=== PATIENT | male | born 1985 | race Caucasian/White ===

== ENCOUNTER 2022-10-21 15:25 | Emergency (ER) | payer OTHER, SELFPAY ==
[2022-10-21 15:41] VITALS: BP 135/81; PULSE 95; RESP 16; TEMP 36.9; O2SAT 99
--- NOTE | 2022-10-21 15:44 | ED.EAR ---
HPI - Ear Problem General Chief complaint: Ear Stated complaint: ear clogged Time Seen by Provider: 10/21/22 15:51 Source: patient, RN notes reviewed and old records reviewed Mode of arrival: ambulatory Limitations: no limitations History of Present Illness HPI Narrative: 36-year-old male presents to the [facility] with complaints decreased hearing/ear clogged to the right ear that has been worsening over the last several days. Denies any fevers. Related Data Allergies Allergy/AdvReac Type Severity Reaction Status Date / Time Penicillins Allergy Mild Itching Verified 10/21/22 16:08 Review of Systems Review of Systems: All systems reviewed & are unremarkable except as noted in HPI and below Constitutional: Constitutional: Reports no additional constitutional complaints Eyes: Eyes: Reports no additional eye complaints ENT: Reports as per HPI Cardiovascular: Cardiovascular: Reports no additional cardiovascular complaints, Denies chest pain and Denies dyspnea Respiratory: Respiratory: Reports no additional respiratory complaints, Denies chest congestion, Denies cough and Denies dyspnea Gastrointestinal: Gastrointestinal: Reports no additional gastrointestinal complaints, Denies abdominal pain, Denies nausea and Denies vomiting Musculoskeletal: Musculoskeletal: Reports no additional musculoskeletal complaints Integumentary/Breasts: Skin/Breast: Reports system reviewed and no additional complaints, except as docu Neurologic: Reports system reviewed and no additional complaints, except as documented Psychiatric: Psychiatric: Reports no additional psychiatric complaints Allergic/Immunologic: Allergic/Immunologic: Reports no additional allergic/immunologic complaints PMFSH Comments At the time of my signature, I reviewed and agree with the nursing past medical, surgical, social, and family history. There is no relevant family history pertinent to the patient complaint. Exam Const: General: cooperative, healthy appearing, comfortable, no acute distress, well developed, alert and well nourished Nutritional Appearance: well nourished Orientation/consciousness: patient oriented x3 Limitations: no limitations HENMT: Head: normal to inspection Ears: hearing grossly normal bilaterally, external ears normal and Abnormal EAC present cerumen impaction bilateral Face/Nose/Sinus: Normal external nose present, Normal nares present, Normal nasal mucous membranes and turbinates present and normal facial exam Face and sinus: normal facial exam Mouth: Yes Normal oral and palatal mucosa present, Yes lip normal and Yes moist mucous membranes Throat: posterior oropharynx normal and uvula midline Eyes: General: appearance normal, both eyes and all related structures Alignment and Position: alignment normal Periorbital: periorbital findings normal Conjunctivae: conjunctivae normal Pupils: Equal, round and reactive pupils present EOM: EOMs intact bilaterally Neck: Neck: normal visual inspection, full ROM, no lymphadenopathy and no meningeal signs Chest: Chest palpation & inspection: normal inspection of the chest Resp: Effort & Inspection: normal respiratory effort and able to speak in complete sentences Auscultation: clear to auscultation bilaterally, no crackles, no rales, no rhonchi and no wheezes Cardio: Rate: regular rate Rhythm: regular rhythm Back/Spine/Pelvis: Cervical Spine: cervical ROM normal Thoracic/Lumbar Spine: No thoracic spinal tenderness Skin: General skin exam: normal color and no rashes or lesions noted Lesions: no lesions Rashes: no rashes Wounds: no wounds Neuro: General: patient oriented x3, gait normal, tone normal, moves all extremities and no meningeal signs Cranial nerves: Yes Equal, round and reactive pupils present Cognition (Neuro): normal cognition Speech: normal speech Gait exam (Neuro): Normal gait present Extrem: General: normal to inspection, full ROM, capillary refill normal and normal gait
== END 2022-10-21 16:19 | disposition home or self-care (01) ==
PROVIDERS: Emergency Provider Nurse Practitioner
DX: H61.23 Impacted cerumen, bilateral (principal)
CPT/HCPCS: 69210; 99212; G0463

== ENCOUNTER 2024-05-08 11:20 | Emergency (ER) | payer OTHER, SELFPAY ==
[2024-05-08 11:38] VITALS: BP 131/78; PULSE 94; RESP 16; TEMP 36.4; O2SAT 99
--- NOTE | 2024-05-08 11:50 | ED.URI ---
HPI - URI/Sore Throat General Chief Complaint: Upper Respiratory Infection Stated Complaint: cough,phlegm,low energy, DAW[place] Time Seen by Provider: 05/08/24 11:43 Source: patient and RN notes reviewed Mode of arrival: ambulatory Limitations: no limitations History of Present Illness HPI Narrative: Patient presents today with a 1 month history of cough, fatigue, nasal congestion, ear pain, headache. Cough is worse at night. States symptoms had improved a few days ago, but worsened again 2 days ago. He has tried decongesting, Mucinex with only mild relief. No history of asthma or COPD. Smokes half pack per day. Related Data Allergies Allergy/AdvReac Type Severity Reaction Status Date / Time Penicillins Allergy Mild Itching Verified 05/08/24 11:22 Review of Systems Review of Systems: CONSTITUTIONAL: Denies body aches, fever, chills, or sweats.+ fatigue EYES: Denies visual changes, redness, or discharge. ENT: Denies rhinorrhea, sore throat.+ congestion, ear pain CARDIOVASCULAR: Denies chest pain, palpitations, or edema. RESPIRATORY: Denies dyspnea.+ cough GASTROINTESTINAL: Denies abdominal pain, nausea, vomiting, or diarrhea. GENITOURINARY: Denies dysuria or hematuria. SKIN: Denies rash, itching, or wounds. MUSCULOSKELETAL: Denies back pain, joint pain, or myalgia. NEUROLOGIC: Denies numbness, tingling, or weakness.+ headache PSYCH: Denies depression or anxiety. [facility] Social History Social History (Updated 05/08/24 @ 13:18 by Tona Levy, [facility], ) Smoking packs per day: 0.5 Smoking cigarettes per day: 10.0 Smoking status: Current every day smoker Tobacco type: cigarettes Comments At time of signature, I have reviewed and agree with nursing past medical, surgical, social and family history unless otherwise noted. Please see nursing chart for further information. There is no relevant family history pertinent to the presenting complaint Exam Narrative: GENERAL: Well-appearing, well-nourished, and in no acute distress. HEAD: Normocephalic, atraumatic. EYES: EOMI. No redness or drainage. Conjunctivae normal. ENT: Mucous membranes pink and moist. Nares congested. No rhinorrhea. TMs normal bilaterally. Throat normal. Uvula midline. NECK: Normal AROM. Supple. No lymphadenopathy. CHEST: No respiratory distress. Clear to auscultation. HEART: Regular rate and rhythm. No murmur appreciated. EXTREMITIES: Normal range of motion. No edema. SKIN: Warm, dry, no rash. Capillary refill normal. Normal skin turgor. NEURO: No focal deficits. Alert and oriented x3. Gait steady. PSYCH: Normal affect. No signs of depression or anxiety. Course Course Level of Care: Express Care Visit Vital Signs Vital signs: Vital Signs Temperature 97.5 F L 05/08/24 11:38 Pulse Rate 94 05/08/24 11:38 Respiratory Rate 16 05/08/24 11:38 Blood Pressure 131/78 05/08/24 11:38 Pulse Oximetry 99 05/08/24 11:38 Oxygen Delivery Room Air 05/08/24 11:38 Temperature 97.5 F L 05/08/24 11:38 Pulse Rate 94 05/08/24 11:38 Respiratory Rate 16 05/08/24 11:38 Blood Pressure 131/78 05/08/24 11:38 Pulse Oximetry 99 05/08/24 11:38 Oxygen Delivery Room Air 05/08/24 11:38 Reviewed MDM - URI/Sore Throat MDM Narrative Medical decision making narrative: Patient will be treated with doxycycline, prednisone, and benzonatate for sinusitis and bronchitis. Anticipatory guidance given. Differential Diagnosis Differential diagnosis: Likely upper respiratory infection, otitis media, sinusitis, viral infection, bronchitis and other (Pneumonia) Critical Care Time Critical Care Time Critical Care Time: No Discharge Plan Discharge Clinical Impression: Bronchitis Sinusitis Qualifiers: Sinusitis location: unspecified location Chronicity: acute Recurrence: non-recurrent Qualified Code(s): J01.90 - Acute sinusitis, unspecified Patient Disposition: Home, Self-Care Condition: Stable Instructions: Antibiotic Form, Sinusitis (ED), Acute Bronchitis (ED) Additional Instructions: Please take all medications as prescribed. Be sure to start the prednisone in the morning as taking it in the afternoon may keep you awake at night. Follow-up with your PCP next week if symptoms are not improving. Go to the ER immediately if you develop shortness of breath, chest pain, or new fever. Your blood pressure was elevated above 120/80 today at Urgent Care. This puts you above the threshold for follow up. Please schedule a followup visit with your personal physician as soon as possible, for further evaluation and treatment. Even blood pressure exceeding 120/80 may indicate pre-hypertension. Prescriptions: New benzonatate 200 mg capsule 200 mg PO TID PRN (Reason: cough) Qty: 20 0RF prednisone 50 mg tablet 50 mg PO DAILY 5 Days Qty: 5 0RF doxycycline hyclate 100 mg tablet 100 mg PO BID 7 Days Qty: 14 0RF Follow-up/Referrals: PHYSICIAN,CROWN BUFFER [Primary Care Provider] - Time of Disposition: 11:53
== END 2024-05-08 11:59 | disposition home or self-care (01) ==
PROVIDERS: Emergency Provider Nurse Practitioner
DX: J40 Bronchitis, not specified as acute or chronic (principal); J01.90 Acute sinusitis, unspecified; F17.210 Nicotine dependence, cigarettes, uncomplicated
CPT/HCPCS: 99213; G0463

== ENCOUNTER 2024-11-04 14:11 | Emergency (ER) | payer BC, SELFPAY ==
--- NOTE | ~2024-11-04 | XR_ITS ---
EXAMINATION: XR chest 2V DATE: 11/04/2024 14:42 INDICATION: Coughing and wheezing. TECHNIQUE: PA and lateral views of the chest were obtained. COMPARISON: None FINDINGS: The lungs are clear with no focal airspace opacities, pulmonary edema, pleural effusion or pneumothor ax. The cardiomediastinal silhouette is normal. Mild thoracic spondylosis with chronic appearing mild likely physiologic anterior wedging at a few lower thoracic vertebral bodies. IMPRESSION: 1. No acute cardiopulmonary disease. Reviewed, dictated and finalized at location A.
--- NOTE | 2024-11-04 14:15 | ED.URI ---
HPI - URI/Sore Throat General Chief Complaint: Upper Respiratory Infection Stated Complaint: Cough/Vomiting Time Seen by Provider: 11/04/24 14:24 Source: patient, RN notes reviewed and old records reviewed Mode of arrival: ambulatory Limitations: no limitations History of Present Illness HPI Narrative: 38-year-old male presents to the [facility] with 2 and half weeks of cough, headache, sneezing and increased fatigue. Patient is a smoker. Has been taking allergy medication as well as ibuprofen. Denies fevers, chest pain, abdominal pain. Denies shortness of breath. Related Data Allergies Allergy/AdvReac Type Severity Reaction Status Date / Time Penicillins Allergy Mild Itching Verified 11/04/24 14:12 Review of Systems Review of Systems: All systems reviewed & are unremarkable except as noted in HPI and below Constitutional: Constitutional: Reports as per HPI, Reports fatigue and Reports headache(s) ENT: Reports as per HPI Cardiovascular: Cardiovascular: Reports no additional cardiovascular complaints, Denies chest pain and Denies dyspnea Respiratory: Respiratory: Reports as per HPI, Reports no additional respiratory complaints, Denies chest congestion, Reports cough and Denies dyspnea Musculoskeletal: Musculoskeletal: Reports no additional musculoskeletal complaints Integumentary/Breasts: Skin/Breast: Reports system reviewed and no additional complaints, except as docu PMFSH Social History Social History Smoking packs per day: 0.5 Smoking cigarettes per day: 10.0 Smoking status: Current every day smoker Tobacco type: cigarettes Do You Feel Safe in your Home?: Yes Lack of Transportation: No Lack of Food: Never True Current Housing: I Have Housing Concerned About Future Housing: No Difficulty Paying Gas/Electric Bills: No Difficulty Paying for Meds: No Currently Unemployed: No Education: Bachelor's Degree Difficulty w/ Childcare or Family Care: No Comments At the time of my signature, I reviewed and agree with the nursing past medical, surgical, social, and family history. There is no relevant family history pertinent to the patient complaint. Exam Const: General: cooperative, healthy appearing, comfortable, no acute distress, well developed, alert and well nourished Nutritional Appearance: well nourished Orientation/consciousness: patient oriented x3 Limitations: no limitations HENMT: Head: normal to inspection Ears: hearing grossly normal bilaterally, external ears normal, TM's normal bilaterally, EAC's normal, mastoids normal and no periauricular adenopathy Face/Nose/Sinus: Normal external nose present and No nasal discharge present Mouth: Yes Normal oral and palatal mucosa present, Yes lip normal, Yes tongue normal and Yes moist mucous membranes Throat: posterior oropharynx normal, uvula midline, postnasal drainage and no uvular edema Eyes: General: appearance normal, both eyes and all related structures Alignment and Position: alignment normal Neck: Neck: normal visual inspection, full ROM, no lymphadenopathy and no meningeal signs Chest: Chest palpation & inspection: normal inspection of the chest Resp: Effort & Inspection: normal respiratory effort and able to speak in complete sentences Auscultation: no crackles, no rales, no rhonchi and wheezes Cardio: Rate: regular rate Skin: General skin exam: normal color and no rashes or lesions noted Neuro: General: patient oriented x3, gait normal, moves all extremities and no meningeal signs Cognition (Neuro): normal cognition Speech: normal speech Gait exam (Neuro): Normal gait present Extrem: General: normal to inspection, full ROM, capillary refill normal and normal gait Psych: Appearance: grossly normal and well kempt Mental Status: mental status grossly normal Speech and movement: Normal speech and movement present and Clear speech present Affect: normal affect Attitude: cooperative Course Course Level of Care: Express Care Visit Vital Signs Vital signs: Vital Signs Temperature 97.3 F L 11/04/24 14:22 Pulse Rate 87 11/04/24 14:22 Respiratory Rate 16 11/04/24 14:22 Blood Pressure 130/83 11/04/24 14:22 Pulse Oximetry 99 11/04/24 14:22 Oxygen Delivery Room Air 11/04/24 14:22 Temperature 97.3 F L 11/04/24 14:22 Pulse Rate 87 11/04/24 14:22 Respiratory Rate 16 11/04/24 14:22 Blood Pressure 130/83 11/04/24 14:22 Pulse Oximetry 99 11/04/24 14:22 Oxygen Delivery Room Air 11/04/24 14:22 Reviewed MDM - URI/Sore Throat MDM Narrative Medical decision making narrative: Patient sitting in exam room. Nontoxic, vitals stable. Patient in no acute distress. Patient presents for 2 and half week of cough. Patient is a smoker. X-ray negative Patient appropriate for outpatient treatment of bronchitis with close follow-up Discharge instructions reviewed with patient, as well as provided in writing per nursing staff. The instructions also include specific and strict return/GO TO THE ER as well as f/u information. All questions have been answered, and the patient deny any further questions with discharge and discharge plan. Some parts of this dictation were generated by voice recognition software and may contain typographical and/or grammatical inaccuracies. Differential Diagnosis Differential diagnosis: Likely upper respiratory infection, sinusitis, viral infection, bronchitis and other (Pneumonia) Imaging Data Radiologist's impression: EXAMINATION: XR chest 2V DATE: 11/04/2024 14:42 INDICATION: Coughing and wheezing. TECHNIQUE: PA and lateral views of the chest were obtained. COMPARISON: None FINDINGS: The lungs are clear with no focal airspace opacities, pulmonary edema, pleural effusion or pneumothorax. The cardiomediastinal silhouette is normal. Mild thoracic spondylosis with chronic appearing mild likely physiologic anterior wedging at a few lower thoracic vertebral bodies. IMPRESSION: 1. No acute cardiopulmonary disease. Critical Care Time Critical Care Time Critical Care Time: No Discharge Plan Discharge Clinical Impression: Bronchitis Patient Disposition: Home Condition: Stable Instructions: Antibiotic Form, How to Stop Smoking (ED), Acute Bronchitis (ED) Additional Instructions: It is very important to treat your symptoms. Drink plenty of water, Gatorade, Pedialyte, ice pops or Jell-O. Today your x-ray did not show signs of pneumonia. It is recommended that you do stop smoking -Alternate Tylenol and Motrin per package directions for fever or pain. You can alternate every 4 hours -Antihistamine medication such as Zyrtec/Claritin/Sylvie during the day can help improve symptoms. -doing daily nasal irrigations can help relieve pressure your sinuses. Things like a Neti pot -Use Flonase twice a day for 5 days then daily to help reduce the inflammation and dry up your sinuses. -You can also use Mucinex. Be sure to drink plenty of water with this medication at least 8 ounces with every dose and it is important to drink 8 to 10 glasses of water per day. Water is a natural decongestant -Eat and drink things that are easy to swallow, like tea or soup, or popsicles. -Oral rinses such as: Salt water gargles and/or may use topical anesthetic (eg. Chloraseptic spray) or lozenges to relieve dryness or throat pain). -Frequent hand washing or hand fire alarm installer is one of the best ways to prevent spread of infection. -Using a vaporizer or humidifier at night will also help thin secretions and help with coughing up phlegm. -Follow up with primary care provider in 7-10 days if condition is not improving - For new or worsening symptoms go directly to the nearest ER Patient Language: Latvian Prescriptions: New doxycycline monohydrate 100 mg tablet 100 mg PO BID Qty: 14 0RF albuterol sulfate 90 mcg/actuation HFA aerosol inhaler 2 puff inhalation QID PRN (Reason: shortness of breath or wheezing) Qty: 6.7 0RF (DME) Aerochamber MV Spacer See Rx Instructions .Route Qty: 1 0RF Rx Instructions: As directed prednisone 20 mg tablet See Rx Instructions .Route .COMPLEX Qty: 9 0RF Rx Instructions: Take 40 mg daily for 3 days, 20 mg daily for 3 days Follow-up/Referrals: Maegan Neal DO [Primary Care Provider] - 2 Weeks ([facility] care follow up ) Stand Alone Forms: Work/School Release IP Time of Disposition: 15:03
[2024-11-04 14:22] VITALS: BP 130/83; PULSE 87; RESP 16; TEMP 36.3; O2SAT 99
== END 2024-11-04 15:10 | disposition home or self-care (01) ==
PROVIDERS: Emergency Provider Nurse Practitioner; PCP Family Medicine
DX: J40 Bronchitis, not specified as acute or chronic (principal); F17.210 Nicotine dependence, cigarettes, uncomplicated
CPT/HCPCS: 71046; 99213; G0463

== ENCOUNTER 2025-03-23 13:29 | Emergency (ER) | payer BC, SELFPAY ==
[2025-03-23 13:37] VITALS: BP 133/85; PULSE 91; RESP 18; TEMP 37.4; O2SAT 99
--- NOTE | 2025-03-23 14:08 | ED.URI ---
HPI - URI/Sore Throat General Chief Complaint: Upper Respiratory Infection Stated Complaint: respiratory issues Time Seen by Provider: 03/23/25 14:08 Source: patient Mode of arrival: ambulatory Limitations: no limitations History of Present Illness HPI Narrative: 39 y/o male presented for c/o cough, nasal congestion, headache, and fatigue. Onset 1 week. Endorses pain in chest with coughing and is productive of green sputum. Not taking anything for symptoms. Reports history of bronchitis and plans to quit smoking. Related Data Allergies Allergy/AdvReac Type Severity Reaction Status Date / Time Penicillins Allergy Mild Itching Verified 03/23/25 13:53 Review of Systems Review of Systems: CONSTITUTIONAL: Denies body aches, fever, chills, or sweats. EYES: Denies visual changes, redness, or discharge. ENT: reports rhinorrhea, congestion, denies sore throat, or otalgia. CARDIOVASCULAR: Denies chest pain, palpitations, or edema. RESPIRATORY: Reports cough, denies sob, wheezing. GASTROINTESTINAL: Denies abdominal pain, nausea, vomiting, or diarrhea. NEUROLOGIC: reports headache All systems reviewed & are unremarkable except as noted in HPI and below PMFSH Past Medical History Medical History BMI 26.0-26.9,adult Family History Family History Father Mother No problems noted. Sibling No problems noted. Social History Social History Smoking packs per day: 0.5 Smoking cigarettes per day: 10.0 Smoking status: Current every day smoker Tobacco type: cigarettes Second hand tobacco smoke exposure: Yes Alcohol intake: current Substance use: never Substance use type: does not use Do You Feel Safe in your Home?: Yes Lack of Transportation: No Lack of Food: Never True Current Housing: I Have Housing Concerned About Future Housing: No Difficulty Paying Gas/Electric Bills: No Difficulty Paying for Meds: No Currently Unemployed: No Education: Bachelor's Degree Difficulty w/ Childcare or Family Care: No Living arrangements: with family Occupation/Education: occupation Additional occupation/education comments: [employer] Gender identity (if verbalized by the patient): Male Comments At time of signature, I have reviewed and agree with nursing past medical, surgical, social and family history unless otherwise noted. Please see nursing chart for further information. There is no relevant family history pertinent to the presenting complaint Exam Narrative: GENERAL: Well-appearing, in no acute distress. EYES: EOMI. No redness or drainage. Conjunctivae normal. ENT: Mucous membranes pink and moist. No rhinorrhea. Right TM mildly erythematous. Throat normal erythematous. Uvula midline. NECK: Normal AROM. Supple. CHEST: No respiratory distress. Wheezing to right base HEART: Regular rate and rhythm. No murmur appreciated. ABDOMEN: Soft, nontender, nondistended, normal active bowel sounds. SKIN: Warm, dry, no rash. Capillary refill normal. Normal skin turgor. NEURO: Alert and oriented x3. Gait steady. PSYCH: Normal affect. Course Course Emergency Course: Patient is aware of diagnosis, understands and agrees to treatment plan. Anticipatory guidance given. Patient agrees to follow-up as directed and is aware of reasons to seek care at the emergency department. Portions of this record may have been created with voice recognition software Level of Care: Express Care Visit Vital Signs Vital signs: Vital Signs Temperature 99.4 F 03/23/25 13:37 Pulse Rate 91 03/23/25 13:37 Respiratory Rate 18 03/23/25 13:37 Blood Pressure 133/85 03/23/25 13:37 Pulse Oximetry 99 03/23/25 13:37 Oxygen Delivery Room Air 03/23/25 13:37 Temperature 99.4 F 03/23/25 13:37 Pulse Rate 91 03/23/25 13:37 Respiratory Rate 18 03/23/25 13:37 Blood Pressure 133/85 03/23/25 13:37 Pulse Oximetry 99 03/23/25 13:37 Oxygen Delivery Room Air 03/23/25 13:37 MDM - URI/Sore Throat MDM Narrative Medical decision making narrative: Discussed physical exam findings. Advised supportive measures and signs/symptoms to go to the ER. Pt is appropriate for outpt treatment and f/u. Differential Diagnosis Differential diagnosis: Likely upper respiratory infection, sinusitis, viral infection, bronchitis, pharyngitis and other (Angioedema, perforation, asthma, pneumonia, PE, tension pneumothorax, cardiac tamponade MT, pericarditis, pleural effusion, CHF, bronchitis, cardiac arrhythmia) Discharge Plan Discharge Clinical Impression: Bronchitis Patient Disposition: Home Condition: Stable Instructions: Antibiotic Form, How to Stop Smoking (ED), Acute Bronchitis (ED) Additional Instructions: Take medication as directed Use your inhaler as previously prescribed as needed for shortness of breath/wheezing Recommendations: Smoking cessation Flonase spray and Zyrtec (or Claritin/Sylvie) for nasal congestion over the counter Cough syrup may cause drowsiness; avoid driving or take it at night time. Tylenol every 8 hours as needed for pain Symptomatic treatment includes: rest, fluids, and increase humidity of the air at home. Follow up with your primary care provider as needed in 1 week Go to the ER for worsening symptoms or concerns Patient Language: Setswana Prescriptions: New benzonatate 200 mg capsule 200 mg PO TID PRN (Reason: cough) Qty: 20 0RF methylprednisolone [Medrol (Dayron)] 4 mg tablets,dose pack See Rx Instructions .ROUTE .COMPLEX Qty: 21 0RF Rx Instructions: orally per package directions doxycycline hyclate 100 mg tablet 100 mg PO BID 7 Days Qty: 14 0RF No Action albuterol sulfate 90 mcg/actuation HFA aerosol inhaler 2 puff inhalation QID PRN (Reason: shortness of breath or wheezing) Qty: 6.7 0RF (DME) Aerochamber MV Spacer See Rx Instructions .Route Qty: 1 0RF Rx Instructions: As directed budesonide-formoterol [Symbicort] 80-4.5 mcg/actuation HFA aerosol inhaler 1 inh inhalation Q4-6H PRN (Reason: shortness of breath) Qty: 10.2 1RF Rx Instructions: 1-2 inhalations as needed every 4 hours. Follow-up/Referrals: Maegan Neal DO [Primary Care Provider, Family Practice] Time of Disposition: 14:16
== END 2025-03-23 14:21 | disposition home or self-care (01) ==
PROVIDERS: Emergency Provider Nurse Practitioner Family; PCP Family Medicine
DX: J40 Bronchitis, not specified as acute or chronic (principal); F17.210 Nicotine dependence, cigarettes, uncomplicated
CPT/HCPCS: 99213; G0463